=== PATIENT | female | born 2000 | race Hispanic/Latino ===

== ENCOUNTER → 2024-06-30 | Outpatient (CLI) | payer OTHER | LOC: M WHC 08:34 | PROVIDERS: ATTEND Advanced Practice Midwife | DX: R22.31 Localized swelling, mass and lump, right upper limb (principal); Z3A.12 12 weeks gestation of pregnancy ==

== ENCOUNTER → 2024-08-25 | Outpatient (CLI) | payer OTHER | LOC: M WHC 08:22 | PROVIDERS: ATTEND Nuclear Medicine Nuclear Imaging & Therapy | DX: O99.891 Other specified diseases and conditions complicating pregnancy (principal); R22.31 Localized swelling, mass and lump, right upper limb; Z3A.24 24 weeks gestation of pregnancy ==